=== PATIENT | male | born 1940 | race Caucasian/White ===

== ENCOUNTER 2018-11-25 17:20 | Emergency (ER) | payer MEDICARE, OTHER ==
--- NOTE | 2018-11-25 17:31 | ERPHSYRPT ---
- History of Present Illness Time Seen by Provider: 11/25/18 17:31 Source: patient Exam Limitations: no limitations Patient Subjective Stated Complaint: pt states was getting ready to sit in a chair to put his shoes on and he slipped hitting his arm on a piece of metal on the chair causing a laceration to right forearm. Triage Nursing Assessment: pt presents A/O, speech clear. 5cm x 2.5cm laceration open with active bleeding. adipose tissue exposed. 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 denies numbness or tingling. states he is on Physician History: 78 y/o left handed white male slipped when trying to sit down in pts spouse's wheelchair. cut his right forearm on something sharp. tetanus utd. no other injuries or complaints. Timing/Duration: today Quality: painful Severity: mild Location: extremities (right forearm) Associated Symptoms: denies symptoms Allergies/Adverse Reactions: codeine Allergy (Verified 12/01/14 20:42) Home Medications: Nitroglycerin 0.4 mg Tablet [Nitrostat 0.4 MG Tablet] 0.4 mg SL .Q1HPRN PRN 10/24/13 [History] Amiodarone HCl 200 mg [Cordarone 200 MG] 200 mg PO DAILY 12/01/14 [History ] Levothyroxine Sodium 50 Mcg [Synthroid 50 Mcg] 100 mcg PO DAILY 12/01/14 [ History] Metoprolol Succinate 50 mg [Toprol Xl 50 MG] 25 mg PO BID 12/01/14 [ History] Apixaban [Eliquis] 5 mg PO BID 11/25/18 [History] Evolocumab [Repatha Syringe] 140 mg SQ UD 11/25/18 [History] Hx Tetanus, Diphtheria Vaccination/Date Given: No (long ago) Hx Influenza Vaccination/Date Given: No Hx Pneumococcal Vaccination/Date Given: No Immunizations Up to Date: Yes - Review of Systems Constitutional: No Symptoms Eyes: No Symptoms Ears, Nose, & Throat: No Symptoms Respiratory: No Symptoms Cardiac: No Symptoms Abdominal/Gastrointestinal: No Symptoms Genitourinary Symptoms: No Symptoms Musculoskeletal: No Symptoms Skin: Other (laceration right forearm) Neurological: No Symptoms Psychological: No Symptoms Endocrine: No Symptoms Hematologic/Lymphatic: No Symptoms Immunological/Allergic: No Symptoms All Other Systems: Reviewed and Negative - Past Medical History Pertinent Past Medical History: Yes Neurological History: Other ENT History: No Pertinent History Cardiac History: High Cholesterol, Hypertension, Myocardial Infarction ([place]) Respiratory History: No Pertinent History Endocrine Medical History: No Pertinent History Musculoskeletal History: No Pertinent History GI Medical History: No Pertinent History History: No Pertinent History Psycho-Social History: No Pertinent History Male Reproductive Disorders: Prostate Problems 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 - Past Surgical History Past Surgical History: Yes Neuro Surgical History: No Pertinent History Cardiac: CABG, Internal Defibrillator, Pacemaker Respiratory: No Pertinent History Gastrointestinal: No Pertinent History Genitourinary: No Pertinent History Musculoskeletal: No Pertinent History Male Surgical History: Prostate Surgery, Vasectomy Other Surgical History: 5-bypass - Social History Smoking Status: Former smoker Exposure to second hand smoke: No Drug Use: none Patient Lives Alone: No - Nursing Vital Signs Nursing Vital Signs: Initial Vital Signs Temperature 97.5 F 11/25/18 17:21 Pulse Rate 62 11/25/18 17:21 Blood Pressure 161/94 11/25/18 17:21 Pain Scale Pain Intensity 5 - Physical Exam General Appearance: no apparent distress, alert Eye Exam: PERRL/EOMI, eyes nml inspection Ears, Nose, Throat Exam: normal ENT inspection, moist mucous membranes Neck Exam: normal inspection, non-tender, supple, full range of motion Respiratory Exam: airway intact, No chest tenderness, No respiratory distress Gastrointestinal/Abdomen Exam: No tenderness Rectal Exam: not done Back Exam: normal inspection, normal range of motion, No CVA tenderness, No vertebral tenderness Extremity Exam: normal inspection, normal range of motion, pelvis stable Neurologic Exam: alert, oriented x 3, cooperative, plant protection officer II-XII nml as tested Skin Exam: laceration (skin flap laceration horseshoe no active bleeding and no fb) Lymphatic Exam: No adenopathy SpO2 Interpretation: normal O2 Delivery: Room Air Procedures - Laceration/Wound Repair Right Volar Other Wound Location: Right, lower arm Wound Length (cm): 6 Wound's Depth, Shape: superficial Wound Explored: clean Irrigated: Yes Hibiclens Prep: Yes Wound Repaired With: Leigh Ann Number of Sutures: 13 (leigh ann) Sterile Dressing Applied?: Yes - Course Nursing assessment & vital signs reviewed: Yes - Progress Progress: improved Counseled pt/family regarding: diagnosis, need for follow-up - Departure Departure Disposition: Home Clinical Impression: Forearm laceration Condition: Stable Critical Care Time: No Referrals: DIANA BRYANT [NON-STAFF PHY W/O PRIVILEGES] - Additional Instructions: keep current bandage in place until Wednesday. Wednesday morning you may remove dressing and clean with soap and water. apply bacitracin oinmtent daily. cover with bandage daily. staple removal in 8 to 10 days.
[2018-11-25 19:42] VITALS: BP 145/81
[2018-11-25] MEDS ORDERED: BACIGUENT PACKET ONE (19:52)
[2018-11-25 20:01] VITALS: PULSE 70; O2SAT 99
== END 2018-11-25 20:12 | disposition home or self-care (01) ==
LOC: ED 17:20
DX: S51.811A Laceration without foreign body of right forearm, initial encounter (principal); W01.198A Fall on same level from slipping, tripping and stumbling with subsequent striking against other object, initial encounter
CPT/HCPCS: 12002; 99283; A9270-GY

== ENCOUNTER 2019-08-22 07:47 | Day surgery (SDC) | payer MEDICARE, OTHER ==
[~2019-08-22 07:47] MED LIST: Ak-Dilate OPHTHALMIC*** 1.065 ML, Cyclogyl 1% OPHTH SOL 5 ML 1.065 ML, GATIFLOXACIN 0.5... OP ONE; Lactated Ringers 1,000 ML IV ONE; Lactated Ringers 1,000 ML IV SCH; NON-FORMULARY ITEM OP ONE; TETRACAINE 0.5% STERI-UNIT SOL OP ONE
[2019-08-22] MEDS ORDERED: ACETAZOLAMIDE 250 MG TABLET PO ONE (09:00)
[2019-08-22] MEDS ORDERED: Epinephrine Preservative Free 1 MG/ML INTRAOP ONE (09:00)
[2019-08-22] MEDS ORDERED: BSS 500 ML, Fortaz/Tazicef 1 GM** 0.2 G IO ONE ×2 (09:00)
[2019-08-22] MEDS ORDERED: BETADINE 5% OPHTHALMIC 30 ML OP ONE (09:00)
[2019-08-22] MEDS ORDERED: LIDOCAINE HCL 1% 50 MG/5 ML VL PF IJ ONE (09:00)
[2019-08-22] MEDS ORDERED: Zofran 4 MG/2 ML VIAL IV PRN (09:00)
[2019-08-22] MEDS: TETRACAINE 0.5% STERI-UNIT SOL OP ONE ×2 (09:23→09:52)
[2019-08-22] MEDS ORDERED: Ketamine HCl 50 MG/ML ONE (10:16)
[2019-08-22] MEDS ORDERED: DIPRIVAN 200 MG/20 ML IV ONE (10:16)
[2019-08-22 11:31] VITALS: BP 142/93; PULSE 78; O2SAT 99
--- NOTE | 2019-08-22 11:47 | OP ---
DATE/TIME OF OPERATION: 08/22/2019 1019 TIME DICTATED: 1109 PREOPERATIVE DIAGNOSIS: Senile cataract of left eye. POSTOPERATIVE DIAGNOSIS: Senile cataract of left eye. SURGEON: Margarita San MD LINING FELLER BLINDSTITCH: None. OPERATION: Cataract extraction of left eye with an intraocular lens implant. STANDARD __X___ COMPLEX ANESTHESIA: MAC. ___X__ Monitored anesthesia care in combination with topical and intra-cameral anesthesia (because of the established specific risk of reflux, arrhythmias, or an anxiety attack associated with ocular manipulation as well as difficulty of the caption writer to manage such potentially catastrophic events while simultaneously attempting to complete the surgical procedure, it was deemed necessary for the patient's safety to have an anesthesiologist or a nurse wastewater treatment plant attendant present during the procedure whenever possible. The anesthesiologist or the nurse wastewater treatment plant attendant was utilized to monitor and regulate the intravenous sedation of the patient, so the patient was cooperative, relaxed, and comfortable). Topical anesthesia using Tetracaine eye drops together with intra cameral anesthesia using Lidocaine 1% MPF. The nurse was utilized to monitor the patient. ANESTHESIA PROVIDER: Jomar Gallo CRNA. COMPLICATIONS: None. BLOOD LOSS: None. INDICATIONS: The patient is undergoing cataract surgery in the hopes of eliminating the visual complaints and difficulty. PROCEDURE: After arriving at the facility's outpatient surgery area, an IV was started; the patient was given 5 mg of p.o. Versed. (If an anesthesia provider was not monitoring the patient) The patient was then given topical anesthetic Tetracaine eye drops. A cotton pellet was soaked into a solution of a combination of Zymaxid 0.5%, Messi-Synephrine 2.5% and Ocufen (other drops might have been substituted referenced in the patient's record). The pellet was inserted by the RN into the lower conjunctival cul-de-sac with a sterile forceps and left for 20 minutes. The pellet was then removed by the RN with a sterile forceps before taking the patient to the operating room. The preoperative area nurse identified the patient and marked the correct eye to be operated on. I identified the correct eye to be operated on and marked it appropriately in the outpatient surgery area. The patient was then taken into the operating room. Tetracaine eye drops were installed again in the correct eye. The eyelids and the lashes and the lid margins were scrubbed with Betadine solution. One drop of the diluted Betadine solution was placed in the conjunctival cul-de-sac for 45 seconds and then was irrigated. A drop of Tetracaine Gel was placed in the conjunctival cul-de-sac. The patient's forehead was taped to secure it during the procedure. The patient was monitored. The patient was then draped in the usual way for this procedure. An eye speculum was used to separate the eyelids. The eye was then fixated and a temporal 2.5 mm incision was made in the clear cornea temporally at the limbus. Through the incision, 0.25 cc of 1% non-preserved lidocaine was injected into the anterior chamber for intracameral anesthesia. The anterior chamber was then filled with viscoelastic. The pupil was small. I felt that it would be safer to mechanically dilate the pupil. A Malyugin ring was used at this point which dilated the pupil. That was removed at the end of the procedure prior to aspiration of the viscoelastic from the anterior chamber and posterior to the intraocular lens implant. The cataract had a great amount of cortical changes. That rendered seeing the anterior capsule difficult for a safe performance of an anterior capsulotomy. I injected an air bubble into the anterior chamber. I then injected 1 ML of vision blue solution into the anterior chamber. The vision blue solution was irrigated from the anterior chamber after 30 seconds. The anterior capsule was stained which facilitated performing the anterior capsulotomy safely. After that was completed, a cystotome was introduced into the anterior chamber and a round anterior capsulotomy was performed. The capsule was removed by a forceps. Hydrodissection was next carried utilizing a 25-gauge cannula and balanced salt solution to delineate the cortical material from the capsule and the nucleus from the cortical material. The nucleus was rotated freely into the capsular bag with no difficulty. The phaco tip of the [employer] Phacoemulsifier was introduced into the anterior chamber and two grooves were made into the nucleus 90 degrees apart. Using two spatulas resulted into the nucleus being fractured into four quadrants. The phaco tip was then used to remove each quadrant of the nucleus. Viscoelastic was used during this process to protect the corneal endothelium. Once the entire nucleus was removed, the phaco tip then was removed and the irrigation tip was introduced into the eye and the cortex was removed. The posterior capsule was polished. It was noticed that there was a tear into the posterior capsule with few vitreous strands into the pupil plan. An anterior vitrectomy was performed. An 18.00 diopter, SN60WF, posterior chamber lens implant, was inspected and found to be grossly normal. The implant was inserted into the implant injector cartridge; Viscoelastic again was introduced into the anterior chamber, which filled the capsular bag. The implant injector's cartridge tip was placed at the limbal wound and the posterior chamber implant was released into the capsular bag and rotated appropriately. The implant was found to be into the capsular bag and it was centered. __X__ 0.2 ml of Tri-Moxi was introduced via 27 gauge cannula into the vitreous cavity through the ciliary processes. Viscoelastic was aspirated from the anterior chamber and posterior to the intraocular lens implant from the capsular bag using the irrigating tip. The anterior chamber was irrigated and filled with 5 cc antibiotic solution (500 cc of BSS plus 2 ml of Fortaz 100 mg/ml) ( if patient was not allergic to the medication). The lips of the corneal incision were hydrated using BSS solution. The anterior chamber was checked and found to be water tight. One drop each of antibiotic, steroid and NSAID drops (refer to chart for drops used) were placed in the conjunctival cul-de-sac of the operated eye. Patient tolerated the procedure quite well and left the operating room in satisfactory condition. DISCHARGE SUMMARY: The patient was released in stable condition. The patient and those with the patient were given an instruction sheet as of how to care for the eye after surgery as well as counseling on any abnormal laboratory studies by the postoperative RN. The patient was also given an appointment card for follow-up in the office and is to call immediately for any difficulties including but not limited to pain in the eye, decreased vision, discharge from the eye, headache and or fever. DISCHARGE DIAGNOSIS: Pseudophakia of left eye.
== END 2019-08-22 11:40 | disposition home or self-care (01) ==
LOC: SDC 07:47
PROVIDERS: ATTEND Ophthalmology
DX: H25.812 Combined forms of age-related cataract, left eye (principal); I10 Essential (primary) hypertension; E07.9 Disorder of thyroid, unspecified; Z86.79 Personal history of other diseases of the circulatory system; Z79.899 Other long term (current) drug therapy; Z79.01 Long term (current) use of anticoagulants
CPT/HCPCS: 99100; C1780; J0171; J2001; J2704; A9270-GY

== ENCOUNTER 2019-09-19 08:13 | Day surgery (SDC) | payer MEDICARE, OTHER ==
[~2019-09-19 08:13] MED LIST changes: -Lactated Ringers 1,000 ML IV ONE
[2019-09-19] MEDS ORDERED: Lactated Ringers 1,000 ML IV ONE (08:22)
[2019-09-19 08:48] VITALS: BP 128/87; PULSE 74; O2SAT 98
[2019-09-19] MEDS ORDERED: Zofran 4 MG/2 ML VIAL IV PRN (09:00)
[2019-09-19] MEDS ORDERED: ACETAZOLAMIDE 250 MG TABLET PO ONE (09:00)
[2019-09-19 09:03] LABS: INR 1.12 (0.8-3.0); PROTIME 12.7 SECONDS (8.83-12.87)
[2019-09-19] MEDS ORDERED: SUBLIMAZE 100 MCG/2 ML ONE (09:45)
[2019-09-19] MEDS ORDERED: Versed 2 MG/2 ML Injection ONE (09:45)
[2019-09-19] MEDS ORDERED: BETADINE 5% OPHTHALMIC 30 ML OP ONE (10:00)
[2019-09-19] MEDS ORDERED: LIDOCAINE HCL 1% 50 MG/5 ML VL PF IJ ONE (10:00)
[2019-09-19] MEDS ORDERED: BSS 500 ML, Fortaz/Tazicef 1 GM** 0.2 G IO ONE ×2 (10:00)
[2019-09-19] MEDS ORDERED: Epinephrine Preservative Free 1 MG/ML INTRAOP ONE (10:00)
--- NOTE | 2019-09-22 14:55 | OP ---
DATE/TIME OF OPERATION: 09/19/2019 1000 DATE/TIME DICTATED: 09/22/2019 1333 PREOPERATIVE DIAGNOSIS: Senile cataract of right eye. POSTOPERATIVE DIAGNOSIS: Senile cataract of right eye. SURGEON: Margarita San MD HOME HELP AIDE: None. OPERATION: Cataract extraction of right eye with an intraocular lens implant. STANDARD __X___ COMPLEX ANESTHESIA: MAC. ___X___ Monitored anesthesia care in combination with topical and intra-cameral anesthesia (because of the established specific risk of reflux, arrhythmias, or an anxiety attack associated with ocular manipulation as well as difficulty of the plastics worker to manage such potentially catastrophic events while simultaneously attempting to complete the surgical procedure, it was deemed necessary for the patient's safety to have an anesthesiologist or a nurse supervisor electronic testing present during the procedure whenever possible. The anesthesiologist or the nurse supervisor electronic testing was utilized to monitor and regulate the intravenous sedation of the patient, so the patient was cooperative, relaxed, and comfortable). Topical anesthesia using Tetracaine eye drops together with intra cameral anesthesia using Lidocaine 1% MPF. The nurse was utilized to monitor the patient. ANESTHESIA PROVIDER: Jomar Gallo CRNA. COMPLICATIONS: None. BLOOD LOSS: None. INDICATIONS: The patient is undergoing cataract surgery in the hopes of eliminating the visual complaints and difficulty. PROCEDURE: After arriving at the facility's outpatient surgery area, an IV was started; the patient was given 5 mg of p.o. Versed. (If an anesthesia provider was not monitoring the patient) The patient was then given topical anesthetic Tetracaine eye drops. A cotton pellet was soaked into a solution of a combination of Zymaxid 0.5%, Messi-Synephrine 2.5% and Ocufen (other drops might have been substituted referenced in the patient's record). The pellet was inserted by the RN into the lower conjunctival cul-de-sac with a sterile forceps and left for 20 minutes. The pellet was then removed by the RN with a sterile forceps before taking the patient to the operating room. The preoperative area nurse identified the patient and marked the correct eye to be operated on. I identified the correct eye to be operated on and marked it appropriately in the outpatient surgery area. The patient was then taken into the operating room. Tetracaine eye drops were installed again in the correct eye. The eyelids and the lashes and the lid margins were scrubbed with Betadine solution. One drop of the diluted Betadine solution was placed in the conjunctival cul-de-sac for 45 seconds and then was irrigated. A drop of Tetracaine Gel was placed in the conjunctival cul-de-sac. The patient's forehead was taped to secure it during the procedure. The patient was monitored. The patient was then draped in the usual way for this procedure. An eye speculum was used to separate the eyelids. The eye was then fixated and a temporal 2.5 mm incision was made in the clear cornea temporally at the limbus. Through the incision, 0.25 cc of 1% non-preserved lidocaine was injected into the anterior chamber for intracameral anesthesia. The anterior chamber was then filled with viscoelastic. The pupil was small. I felt that it would be safer to mechanically dilate the pupil. A Malyugin ring was used at this point which dilated the pupil. That was removed at the end of the procedure prior to aspiration of the viscoelastic from the anterior chamber and posterior to the intraocular lens implant. The cataract had a great amount of cortical changes. That rendered seeing the anterior capsule difficult for a safe performance of an anterior capsulotomy. I injected an air bubble into the anterior chamber. I then injected 1 ML of vision blue solution into the anterior chamber. The vision blue solution was irrigated from the anterior chamber after 30 seconds. The anterior capsule was stained which facilitated performing the anterior capsulotomy safely. After that was completed, a cystotome was introduced into the anterior chamber and a round anterior capsulotomy was performed. The capsule was removed by a forceps. Hydrodissection was next carried utilizing a 25-gauge cannula and balanced salt solution to delineate the cortical material from the capsule and the nucleus from the cortical material. The nucleus was rotated freely into the capsular bag with no difficulty. The phaco tip of the [employer] Phacoemulsifier was introduced into the anterior chamber and two grooves were made into the nucleus 90 degrees apart. Using two spatulas resulted into the nucleus being fractured into four quadrants. The phaco tip was then used to remove each quadrant of the nucleus. Viscoelastic was used during this process to protect the corneal endothelium. Once the entire nucleus was removed, the phaco tip then was removed and the irrigation tip was introduced into the eye and the cortex was removed. The posterior capsule was polished. It was noticed that there was a tear into the posterior capsule with few vitreous strands into the pupil plan. An anterior vitrectomy was performed. An 18.50 diopter, SN60WF, posterior chamber lens implant, was inspected and found to be grossly normal. The implant was inserted into the implant injector cartridge; Viscoelastic again was introduced into the anterior chamber, which filled the capsular bag. The implant injector's cartridge tip was placed at the limbal wound and the posterior chamber implant was released into the capsular bag and rotated appropriately. The implant was found to be into the capsular bag and it was centered. 0.2 ml of Tri-Moxi was introduced via 27 gauge cannula into the vitreous cavity through the ciliary processes. Viscoelastic was aspirated from the anterior chamber and posterior to the intraocular lens implant from the capsular bag using the irrigating tip. The anterior chamber was irrigated and filled with 5 cc antibiotic solution (500 cc of BSS plus 2 ml of Fortaz 100 mg/ml) ( if patient was not allergic to the medication). The lips of the corneal incision were hydrated using BSS solution. The anterior chamber was checked and found to be water tight. ___X___ One drop each of antibiotic, steroid and NSAID drops (refer to chart for drops used) were placed in the conjunctival cul-de-sac of the operated eye. Patient tolerated the procedure quite well and left the operating room in satisfactory condition. DISCHARGE SUMMARY: The patient was released in stable condition. The patient and those with the patient were given an instruction sheet as of how to care for the eye after surgery as well as counseling on any abnormal laboratory studies by the postoperative RN. The patient was also given an appointment card for follow-up in the office and is to call immediately for any difficulties including but not limited to pain in the eye, decreased vision, discharge from the eye, headache and or fever. DISCHARGE DIAGNOSIS: Pseudophakia of right eye.
== END 2019-09-19 11:30 | disposition home or self-care (01) ==
LOC: SDC 08:13
PROVIDERS: ATTEND Ophthalmology
DX: H25.811 Combined forms of age-related cataract, right eye (principal); I10 Essential (primary) hypertension; E78.00 Pure hypercholesterolemia, unspecified; I51.9 Heart disease, unspecified; E07.9 Disorder of thyroid, unspecified; Z79.01 Long term (current) use of anticoagulants; Z79.899 Other long term (current) drug therapy
CPT/HCPCS: 36415; 85610; 99100; C1780; J0171; J2001; J2250; J3010; A9270-GY

== ENCOUNTER 2020-02-28 11:14 | Emergency (ER) | payer MEDICARE, OTHER ==
--- NOTE | 2020-02-28 11:18 | ERPHSYRPT ---
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 The first was Entresto (BHAVIN inhibitor) and Bumex (loop diuretic). Apparently, the Bumex prescription was his 's and he was unaware that he took his 's medication. Patient denies chest pain. He does state that he is short of breath. Patient does have congestive heart failure. Patient does not have ab dominal pain. He states he has no nausea or vomiting or diarrhea symptoms. Timing/Duration: today Associated Symptoms: shortness of breath, No nausea, No vomiting, No abdominal pain, No chest pain Allergies/Adverse Reactions: codeine Allergy (Mild, Verified 02/28/20 11:54) stomach upset Home Medications: Nitroglycerin 0.4 mg Tablet [Nitrostat 0.4 MG Tablet] 0.4 mg SL UD PRN 10/24/13 [History] Apixaban [Eliquis] 5 mg PO BID 11/25/18 [History] Evolocumab [Repatha Syringe] 140 mg SQ UD 11/25/18 [History] Levothyroxine Sodium 75 Mcg [Synthroid 75 Mcg] 75 mcg PO DAILY 08/17/19 [History] Metoprolol Tartrate 50 mg [Lopressor 50 MG] 50 mg PO BID 08/17/19 [History] Hx Tetanus, Diphtheria Vaccination/Date Given: No (long ago) Hx Influenza Vaccination/Date Given: No Hx Pneumococcal Vaccination/Date Given: No Travel Risk - International Travel Have you traveled outside of the country in past 3 weeks: No - Coronavirus Screening Are you exhibiting any of the following symptoms?: No Symptoms: Shortness of Breath Close contact with a COVID-19 positive Pt in past 14-21 Days: No - Review of Systems Constitutional: No Symptoms Eyes: No Symptoms Ears, Nose, & Throat: No Symptoms Respiratory: Dyspnea Cardiac: No Symptoms Abdominal/Gastrointestinal: No Symptoms Genitourinary Symptoms: No Symptoms Musculoskeletal: No Symptoms Skin: No Symptoms Neurological: No Symptoms Psychological: No Symptoms Endocrine: No Symptoms Hematologic/Lymphatic: No Symptoms Immunological/Allergic: No Symptoms All Other Systems: Reviewed and Negative - Past Medical History Pertinent Past Medical History: Yes Neurological History: Other ENT History: Cataracts Cardiac History: High Cholesterol, Hypertension, Myocardial Infarction ([place]) Respiratory History: No Pertinent History Endocrine Medical History: No Pertinent History, Hypothyroidism Musculoskeletal History: No Pertinent History, Arthritis GI Medical History: No Pertinent History History: No Pertinent History Psycho-Social History: No Pertinent History Male Reproductive Disorders: Prostate Cancer, Prostate Problems Other Medical History: 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 5-bypass - Social History Smoking Status: Former smoker Exposure to second hand smoke: No Drug Use: none Patient Lives Alone: No - Nursing Vital Signs Nursing Vital Signs: Initial Vital Signs Temperature 96.4 F 02/28/20 11:14 Pulse Rate 66 02/28/20 11:14 Respiratory Rate 22 02/28/20 11:14 Blood Pressure 81/53 02/28/20 11:14 O2 Sat by Pulse Oximetry 98 02/28/20 11:14 Pain Scale Pain Intensity 0 - Physical Exam General Appearance: mild distress, alert, anxiety Eye Exam: PERRL/EOMI, eyes nml inspection Ears, Nose, Throat Exam: normal ENT inspection, dry mucous membranes, other (Mildly enlarged tongue.) Neck Exam: normal inspection, non-tender, supple, full range of motion Respiratory Exam: normal breath sounds, lungs clear, airway intact, No chest tenderness, No respiratory distress Cardiovascular Exam: regular rate/rhythm, normal heart sounds, normal peripheral pulses Gastrointestinal/Abdomen Exam: soft, normal bowel sounds, No tenderness Rectal Exam: not done Back Exam: normal inspection, normal range of motion, No CVA tenderness Extremity Exam: normal inspection, normal range of motion, pelvis stable Neurologic Exam: alert, oriented x 3, cooperative, planning official II-XII nml as tested Skin Exam: normal color, warm, dry Lymphatic Exam: No adenopathy SpO2 Interpretation: normal SpO2: 98 O2 Delivery: Room Air - Course Nursing assessment & vital signs reviewed: Yes EKG Interpreted by Me: RATE (85), Other (Nuclear paced rhythm. No obvious elevation or depression.) Ordered Tests: Active Orders 24 hr Category Date Time Status Contract Admin STAT Care 02/28/20 11:38 Active EKG-ER Only STAT Care 02/28/20 11:37 Active IV Insertion STAT Care 02/28/20 11:37 Active Pulse Oximetry (ED) STAT Care 02/28/20 11:37 Active Re-Check Vital Signs STAT Care 02/28/20 11:37 Active CHEST 1 VIEW (PORTABLE) Stat Exams 02/28/20 11:38 Completed CHEST WITH CONTRAST [CT] Stat Exams 02/28/20 13:21 Completed CBC W DIFF Stat Lab 02/28/20 11:51 Completed CMP Stat Lab 02/28/20 11:51 Completed D-DIMER QUANTITATIVE Stat Lab 02/28/20 11:51 Completed Lactic Acid Stat Lab 02/28/20 11:22 Completed NT PRO BNP Stat Lab 02/28/20 11:51 Completed PROTIME WITH INR Stat Lab 02/28/20 11:51 Completed TROPONIN Q3H Lab 02/28/20 11:51 Completed TROPONIN Q3H Lab 02/28/20 14:47 Completed TROPONIN Q3H Lab 02/28/20 17:45 Ordered TROPONIN Q3H Lab 02/28/20 20:45 Ordered TROPONIN Q3H Lab 02/28/20 23:45 Ordered Medication Summary Discontinued Medications Generic Name Dose Route Start Last Admin Trade Name Freq PRN Reason Stop Dose Admin Famotidine 40 mg 02/28/20 11:39 02/28/20 11:47 Pepcid 20 Mg Vial IV 02/28/20 11:40 40 mg STAT ONE Administration Famotidine Confirm 02/28/20 11:45 Pepcid 20 Mg Vial Administered 02/28/20 11:46 Dose 40 mg IV .STK-MED ONE Furosemide 20 mg 02/29/20 13:23 Lasix 20 Mg/2 Ml IV 02/29/20 13:24 STAT ONE Furosemide 40 mg 02/28/20 14:40 02/28/20 14:49 Lasix 40 Mg/4 Ml IV 02/28/20 14:41 40 mg STAT ONE Administration Furosemide Confirm 02/28/20 14:42 Lasix 40 Mg/4 Ml Administered 02/28/20 14:43 Dose 40 mg .ROUTE .STK-MED ONE Sodium Chloride Confirm 02/28/20 11:50 Sodium Chloride 0.9% 1000 Ml Administered 02/28/20 11:51 Dose 1,000 mls @ ud .ROUTE .STK-MED ONE Sodium Chloride Confirm 02/28/20 11:57 Sodium Chloride 0.9% 1000 Ml Administered 02/28/20 11:58 Dose 1,000 mls @ ud .ROUTE .STK-MED ONE Sodium Chloride 1,000 mls @ 999 mls/hr 02/28/20 13:42 02/28/20 13:45 Sodium Chloride 0.9% 1000 Ml IV 02/28/20 14:42 Infused .Q1H1M STA Infusion Sodium Chloride 1,000 mls @ 999 mls/hr 02/28/20 13:43 02/28/20 13:45 Sodium Chloride 0.9% 1000 Ml IV 02/28/20 14:43 Infused .Q1H1M STA Infusion Ceftriaxone Sodium/Dextrose 1 g in 50 mls @ 100 mls/hr 02/28/20 14:24 02/28/20 15:23 Rocephin 1 Gm-D5w 50 Ml Bag IV 02/28/20 14:53 Infused STAT STA Infusion Ceftriaxone Sodium/Dextrose Confirm 02/28/20 14:42 Rocephin 1 Gm-D5w 50 Ml Bag Administered 02/28/20 14:43 Dose 1 g in 50 mls @ ud IV .STK-MED ONE Methylprednisolone Sodium Succinate 125 mg 02/28/20 11:39 02/28/20 11:48 Solu-Medrol 125 Mg IV 02/28/20 11:40 125 mg STAT ONE Administration Methylprednisolone Sodium Succinate Confirm 02/28/20 11:45 Solu-Medrol 125 Mg Administered 02/28/20 11:46 Dose 125 mg .ROUTE .STK-MED ONE Lab/Rad Data: Laboratory Result Diagrams 02/28/20 11:51 02/28/20 11:51 Laboratory Results 02/28/20 02/28/20 02/28/20 Range/Units 14:47 11:51 11:51 WBC (4.0-10.5) K/mm3 RBC (4.1-5.6) M/mm3 Hgb (12.5-18.0) gm/dl Hct (42-50) % MCV (78-100) fl MCH (26-32) pg MCHC (32-36) g/dl RDW (11.5-14.0) % Plt Count (150-450) K/mm3 MPV (7.5-11.0) fl Gran % (36.0-66.0) % Eos # (Auto) (0-0.5) Absolute Lymphs (auto) (1.0-4.6) Absolute Monos (auto) (0.0-1.3) Lymphocytes % (24.0-44.0) % Monocytes % (0.0-12.0) % Eosinophils % (0.00-5.0) % Basophils % (0.0-0.4) % Absolute Granulocytes (1.4-6.9) Basophils # (0-0.4) PT 21.5 H (8.83-12.87) SECONDS INR 1.89 (0.8-3.0) D-Dimer 1812 H* (215-500) ng/mL Sodium (137-145) mmol/L Potassium (3.5-5.1) mmol/L Chloride (98-107) mmol/L Carbon Dioxide (22-30) mmol/L Anion Gap (5-15) MEQ/L BUN (9-20) mg/dL Creatinine (0.66-1.25) mg/dL Estimated GFR ML/MIN Glucose (74-106) mg/dL Lactic Acid (0.4-2.0) Calcium (8.4-10.2) mg/dL Total Bilirubin (0.2-1.3) mg/dL AST (17-59) U/L ALT (0-50) U/L Alkaline Phosphatase (38-126) U/L Troponin I < 0.012 < 0.012 (0.000-0.034) ng/mL NT-Pro-B Natriuret Pep (0-1800) pg/mL Serum Total Protein (6.3-8.2) g/dL Albumin (3.5-5.0) g/dL 11/25/20 11/25/20 11/25/20 Range/Units 11:51 11:51 11:22 WBC 4.7 (4.0-10.5) K/mm3 RBC 3.52 L (4.1-5.6) M/mm3 Hgb 10.7 L (12.5-18.0) gm/dl Hct 35.3 L (42-50) % MCV 100.3 H (78-100) fl MCH 30.4 (26-32) pg MCHC 30.3 L (32-36) g/dl RDW 15.9 H (11.5-14.0) % Plt Count 208 (150-450) K/mm3 MPV 10.0 (7.5-11.0) fl Gran % 52.5 (36.0-66.0) % Eos # (Auto) 0.07 (0-0.5) Absolute Lymphs (auto) 1.98 (1.0-4.6) Absolute Monos (auto) 0.18 (0.0-1.3) Lymphocytes % 42.0 (24.0-44.0) % Monocytes % 3.8 (0.0-12.0) % Eosinophils % 1.5 (0.00-5.0) % Basophils % 0.2 (0.0-0.4) % Absolute Granulocytes 2.47 (1.4-6.9) Basophils # 0.01 (0-0.4) PT (8.83-12.87) SECONDS INR (0.8-3.0) D-Dimer (215-500) ng/mL Sodium 139 (137-145) mmol/L Potassium 3.8 (3.5-5.1) mmol/L Chloride 111 H (98-107) mmol/L Carbon Dioxide 20 L (22-30) mmol/L Anion Gap 12.2 (5-15) MEQ/L BUN 20 (9-20) mg/dL Creatinine 1.14 (0.66-1.25) mg/dL Estimated GFR > 60.0 ML/MIN Glucose 145 H (74-106) mg/dL Lactic Acid 2.4 H (0.4-2.0) Calcium 8.8 (8.4-10.2) mg/dL Total Bilirubin 1.00 (0.2-1.3) mg/dL AST 36 (17-59) U/L ALT 16 (0-50) U/L Alkaline Phosphatase 57 (38-126) U/L Troponin I (0.000-0.034) ng/mL NT-Pro-B Natriuret Pep 2190 H (0-1800) pg/mL Serum Total Protein 6.1 L (6.3-8.2) g/dL Albumin 3.3 L (3.5-5.0) g/dL - Progress Progress: improved, re-examined Progress Note: 02/28/20 11:31 Patient now stating that he is chest is beginning to hurt. We repeated EKG and there are some changes noted. The changes are compared to the first EKG that was done at 1106 the second EKG is done at 1129. I do not see any type of elevation or depression. 02/28/20 11:46 Seconds (repeat) twelve-lead EKG performed at 1120 9 in the morning rate is 62 there is ventricular paced rhythm. There are some changes on the EKG in terms of the rhythm pattern. However I still do not see acute ST depression or elevation present. 02/28/20 14:22 Patient was reexamined. Patient states he is feeling great. He says I am so much better now than when I came in. He has no chest pain. He has no shortness of breath. Patient wants to go home. We are awaiting his CAT scan of the chest with contrast report. Patient's chest x-ray does show a new left base infiltrate versus atelectasis and there is borderline cardiomegaly. I did give the patient a dose of Lasix. Patient did report that his primary care physician was going to start him on Lasix soon. We will give him a dose of antibiotics as well. 02/28/20 15:29 CAT scan of the chest with contrast shows no central pulmonary emboli present. There is cardiomegaly. However there is no evidence of CHF and no evidence of pneumonia. We will hold on any outpatient prescriptions for antibiotics. We will treat the patient as though he had an allergic reaction to the medication that he was taking. We will have him hold the Entresto and not take the Bumex. He is to call his primary care doctor next week. 02/28/20 15:33 Patient continues to state that he feels great. He does not have chest pain and he is not short of breath. His tongue swelling has improved. His redness is now resolved completely. Counseled pt/family regarding: lab results, diagnosis, need for follow-up, rad results - Departure Departure Disposition: Home Clinical Impression: Allergic reaction caused by a drug Condition: Stable Critical Care Time: Yes Critical Care Time(excluding separately billable procedures): Critical 30-74 mins Referrals: LISA YORK [Primary Care Provider] - Additional Instructions: Drink plenty of fluids. Do not take the Bumex medication. Do not take the Entresto medication. Call your prescribing doctor for further management of your condition. Take your medications as prescribed. Take Benadryl 25 mg orally 3 times a day for the next 4 days. You can obtain that medication [id number]. 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 Prescriptions: Prednisone 10 mg [Deltasone 10 mg] 10 mg PO TID #12 tablet Famotidine 20 mg [Pepcid 20 MG] 20 mg PO DAILY #10 tablet
[2020-02-28] MEDS ORDERED: Pepcid 20 MG VIAL IV ONE ×2 (11:39→11:45)
[2020-02-28] MEDS ORDERED: solu-MEDROL 125 MG IV ONE (11:39)
[2020-02-28] MEDS ORDERED: solu-MEDROL 125 MG ONE (11:45)
[2020-02-28] MEDS ORDERED: Sodium Chloride 0.9% 1000 ML 1,000 ML ONE ×2 (11:50→11:57)
[2020-02-28 11:52] LABS: Absolute Neutrophil Ct (ANC) 2.47 (1.4-6.9); BASOPHIL % 0.2 % (0.0-0.4); Basophil (Absolute #) 0.01 (0-0.4); Eosinophil % 1.5 % (0.00-5.0); Eosinophil (Absolute #) 0.07 (0-0.5); Hematocrit 35.3 % (42-50); Hemoglobin 10.7 gm/dl (12.5-18.0); Lymphocyte (Absolute #) 1.98 (1.0-4.6); Mean Cell Volume 100.3 fl (78-100); Mean Corpuscular Hemoglobin 30.4 pg (26-32); Mean Corpuscular Hgb Concent. 30.3 g/dl (32-36); Monocyte (Absolute #) 0.18 (0.0-1.3); Monocytes % 3.8 % (0.0-12.0); Neutrophil % 52.5 % (36.0-66.0); Platelet Count 208 K/mm3 (150-450); Red Blood Count 3.52 M/mm3 (4.1-5.6); Red Cell Distribution Width 15.9 % (11.5-14.0); White Blood Count 4.7 K/mm3 (4.0-10.5)
[2020-02-28 11:53] LABS: INR 1.89 (0.8-3.0); PROTIME 21.5 SECONDS (8.83-12.87)
[2020-02-28 12:04] LABS: ALBUMIN 3.3 g/dL (3.5-5.0); ALKALINE PHOSPHATASE 57 U/L (38-126); ANION GAP 12.2 MEQ/L (5-15); BLOOD UREA NITROGEN 20 mg/dL (9-20); CHLORIDE 111 mmol/L (98-107); Calcium 8.8 mg/dL (8.4-10.2); Carbon Dioxide 20 mmol/L (22-30); Creatinine 1 1.14 mg/dL (0.66-1.25); EST GLOMERULAR FILTRATION RATE > 60.0 ML/MIN; Glucose 145 mg/dL (74-106); NT PRO BNP 2190 pg/mL (0-1800); Potassium 3.8 mmol/L (3.5-5.1); SGOT/AST 36 U/L (17-59); SGPT/ALT 16 U/L (0-50); SODIUM 139 mmol/L (137-145); Total Protein 6.1 g/dL (6.3-8.2)
--- NOTE | 2020-02-28 12:26 | XRAY ---
Indication: Short of breath and tongue swelling. Allergic reaction to medication. Comparison: December 01, 2014. Portable chest demonstrates new left base infiltrate versus atelectasis and borderline cardiomegaly. Remaining heart and lungs unremarkable with stable CABG surgery and left AICD. Bony thorax intact.
[2020-02-28] MEDS ORDERED: Sodium Chloride 0.9% 1000 ML 1,000 ML IV STA ×2 (13:42→13:43)
--- NOTE | 2020-02-28 14:22 | XRAY ---
Indication: Short of breath and swollen tongue. Allergic reaction to medication. Elevated d-dimer. Multiple contiguous axial images obtained through the chest using 100 cc Isovue 370 contrast and PE protocol. Comparison: None There is good opacification of the pulmonary arteries. However mild respiration artifact and extreme beam artifact from left AICD limits evaluation of the more distal lobar and segmental branches. No central pulmonary embolus. Heart is enlarged. Aorta is normal in course and caliber. No pathologic mediastinal/hilar lymphadenopathy. Small hiatal hernia. Lungs demonstrates moderate bilateral dependent atelectasis and minimal right apical subpleural cystic changes. No suspicious pulmonary mass, infiltrate, consolidation, or effusion. Bony thorax intact with mild osteopenia, minimal degenerative changes throughout the spine, and sternotomy wires. Limited upper abdomen demonstrates multiple hepatic cysts largest 2.5 cm, 6.6 cm right upper renal cyst, and 8 mm left renal calculus. Also cholecystectomy with biliary tree prominence with common bile duct up to 13 mm. Impression: 1. Pulmonary embolus evaluation limited due to respiration and beam artifact. No central pulmonary embolus. 2. Cardiomegaly. Negative for acute pneumonic process or CHF. 3. Incidental hiatal hernia, hepatic cysts, right renal cyst, left renal calculus, biliary tree prominence, and chronic bony findings.
[2020-02-28] MEDS ORDERED: ROCEPHIN 1 Gm-D5w 50 ml Bag** 1 G/50 ML IVPB IV STA (14:24)
[2020-02-28] MEDS ORDERED: Lasix 40 MG/4 ML IV ONE (14:40)
[2020-02-28] MEDS ORDERED: ROCEPHIN 1 Gm-D5w 50 ml Bag** 1 G/50 ML IVPB IV ONE (14:42)
[2020-02-28] MEDS ORDERED: Lasix 40 MG/4 ML ONE (14:42)
[2020-02-28 14:49] VITALS: BP 130/83
[2020-02-28 15:38] VITALS: PULSE 72; O2SAT 94
[2020-02-29] MEDS ORDERED: Lasix 20 MG/2 ML IV ONE (13:23)
== END 2020-02-28 16:23 | disposition home or self-care (01) ==
LOC: ED 11:14
DX: T50.995A Adverse effect of other drugs, medicaments and biological substances, initial encounter (principal); Z95.1 Presence of aortocoronary bypass graft; I10 Essential (primary) hypertension
CPT/HCPCS: 36415; 71045; 71260; 80053; 83605; 83880; 84484; 85025; 85379; 85610; 93005; 93041; 94760; 96360; 96361; 96365; 96374; 96375; 99285; 99291; J0696; J1940; J2930